=== PATIENT | male | born 1985 | race Caucasian/White ===

== ENCOUNTER 2021-03-15 18:17 | Emergency (ER) | payer OTHER ==
[2021-03-15] MEDS ORDERED: Bacitracin Oint 1 GM U/D Packet TOP ONE (18:31)
[2021-03-15] MEDS ORDERED: Diphtheria,Pertussis(Acell),Tetanus Vaccine 0.5 ML Syringe IM ONE (18:34)
--- NOTE | 2021-03-15 18:59 | EDM.PDOC ---
ED HPI GENERAL MEDICAL PROBLEM - General Chief Complaint: Laceration Stated Complaint: RIGHT HAND CUT ON THUMB Time Seen by Provider: 03/15/21 18:31 Source of Information: Reports: Patient History Limitations: Reports: No Limitations - History of Present Illness INITIAL COMMENTS - FREE TEXT/NARRATIVE: Christian is a 35-year-old male presenting to the ED for evaluation of a laceration to the dorsal right thumb. The patient was trying to saber a champagne bottle with a wrench in the neck of the bottle broke falling back causing the laceration on his dorsal right thumb. He has intact distal sensation and range of motion. His last tetanus vaccine was in February 2014 so he will need to be boosted. He has no significant comorbidities. Right Hand Pain Score (Numeric/FACES): 5 - Related Data Allergies Allergy/AdvReac Type Severity Reaction Status Date / Time No Known Allergies Allergy Verified 03/15/21 18:35 Home Meds: Home Meds NK [No Known Home Meds] 03/15/21 [History] Social & Family History - Tobacco Use Tobacco Use Status *Q: Current Every Day Tobacco User Years of Tobacco use: 1 Packs/Tins Daily: 1 - Caffeine Use Caffeine Use: Reports: Coffee, Energy Drinks ED ROS GENERAL - Review of Systems Review Of Systems: See Below Constitutional: Reports: No Symptoms Musculoskeletal: Reports: Hand Pain (Right hand pain over the dorsal thumb due to a laceration) Skin: Reports: Wound (4.1 cm laceration dorsal right thumb) Neurological: Reports: No Symptoms ED EXAM, SKIN/RASH Exam: See Below Exam Limited By: No Limitations General Appearance: Alert, No Apparent Distress Extremities: Normal Range of Motion, Normal Capillary Refill, Other (4.1 cm avulsion laceration dorsal right thumb) Neurological: Alert, Oriented, Normal Cognition, No Motor/Sensory Deficits Skin: Warm, Dry, Wound/Incision (4.1 cm avulsion laceration dorsal right thumb) Location, Skin: Upper Extremity, Right ED SKIN PROCEDURES - Laceration/Wound Repair Right Proximal Dorsal Digit - 1st (Thumb) Appearance: Subcutaneous Distal NVT: Neuro & Vascular Intact Anesthetic Type: Local Local Anesthesia - Lidocaine (Xylocaine): 1% Plain Local Anesthetic Volume: 3cc Skin Prep: Chlorhexidine (Hibiciens) Exploration/Debridement/Repair: Wound Explored, In a Bloodless Field, Explored to Base (The laceration spares the tendon and tendon sheath.) Closed with: Sutures Lac/Wound length In cm: 4.1 Suture Size: 4-0 # of Sutures: 5 Suture Type: Nylon, Interrupted Sterile Dressing Applied: Provider Tetanus Status Addressed: Yes Complications: No Course - Vital Signs Last Recorded V/S: Last Vital Signs Temp 36.7 C 03/15/21 18:26 Pulse 85 03/15/21 18:26 Resp 16 03/15/21 18:26 BP 148/79 H 03/15/21 18:26 Pulse Ox 98 03/15/21 18:26 - Orders/Labs/Meds Orders: Active Orders 24 hr Category Date Time Status Vaccine to be Administered/Admin Charge [RC] ASDIRECTED Care 03/15/21 18:34 Ordered Meds: Medications Discontinued Medications Generic Name Dose Route Start Last Admin Trade Name Marekq PRN Reason Stop Dose Admin Bacitracin 1 dose 03/15/21 18:31 03/15/21 18:42 Bacitracin Oint 1 Gm U/D Packet TOP 03/15/21 18:32 1 dose ONETIME ONE Administration Diphtheria/Tetanus/Acell Pertussis 0.5 ml 03/15/21 18:34 03/15/21 18:41 Diphtheria,Pertussis(Acell),Tetanus Vaccine 0.5 Ml Syringe IM 03/15/21 18:35 0.5 ml .ONCE ONE Administration Lidocaine HCl 5 ml 03/15/21 18:31 03/15/21 18:42 Lidocaine 1% 5 Ml Sdv INJECT 03/15/21 18:32 5 ml ONETIME ONE Administration Departure - Departure Time of Disposition: 18:57 Disposition: Home, Self-Care 01 Clinical Impression: Laceration of right thumb without complication Qualifiers: Encounter type: initial encounter Qualified Code(s): S61.011A - Laceration without foreign body of right thumb without damage to nail, initial encounter - Discharge Information Instructions: Laceration Care, Adult, Sutures, [place], or Adhesive Wound Closure, [id number] Referrals: PCP,None [Primary Care Provider] - Care Plan Goals: Please keep the wound clean and dry for the next 24 hours. Apply a light coating of triple antibiotic ointment or bacitracin to the wound daily with dressing change. You may use Band-Aids after 24 hours to cover the wound. The sutures will need to be removed in 10 days. You may do this at home by cutting 1 side of the suture and pulling straight up with a pair of tweezers. Watch for any signs of infection. Should the wound start to become increasingly painful, distended, or any purulent discharge please return to initiate antibiotics. Good luck on getting the big wall lies up on [place]. Remember to keep your hand out of the water for the next 24 hours. Sepsis Event Note (ED) - Evaluation Sepsis Screening Result: No Definite Risk - Focused Exam Vital Signs: Vital Signs Temp Pulse Resp BP Pulse Ox 03/15/21 18:26 36.7 C 85 16 148/79 H 98 - Problem List & Annotations (1) Laceration of right thumb without complication SNOMED Code(s): 54104678450332750, [id number] Code(s): S61.011A - LACERATION W/O FB OF RIGHT THUMB W/O DAMAGE TO NAIL, INIT Status: Acute Priority: Medium Current Visit: Yes Qualifiers: Encounter type: initial encounter Qualified Code(s): S61.011A - Laceration without foreign body of right thumb without damage to nail, initial encounter - Problem List Review Problem List Initiated/Reviewed/Updated: Yes - My Orders Last 24 Hours: My Active Orders 03/15/21 18:34 Vaccine to be Administered/Admin Charge [RC] ASDIRECTED - Assessment/Plan Last 24 Hours: My Active Orders 03/15/21 18:34 Vaccine to be Administered/Admin Charge [RC] ASDIRECTED
== END 2021-03-15 19:30 | disposition home or self-care (01) ==
LOC: JP.ED 18:17
DX: S61.011A Laceration without foreign body of right thumb without damage to nail, initial encounter (principal); Z72.0 Tobacco use; Z23 Encounter for immunization; W26.8XXA Contact with other sharp object(s), not elsewhere classified, initial encounter
CPT/HCPCS: 12002; 90471; 90715; 99282-25